=== PATIENT | male | born 1950 | race Caucasian/White ===

== ENCOUNTER 2018-10-02 07:30 | Inpatient (IN) | payer BC ==
[~2018-10-02] VITALS: Ht 165.1 cm; Wt 148.1 kg
[~2018-10-02 07:30] MED LIST: ACET-141 PO; ADV50050 INHALATION; ASPI81TA52 PO; ATOR40TA68 PO; CIPR500S2 PO; FURO20TA3 PO; HYDR-3980 PO; METO25TA4 PO; NYST15CR36 TOP; RANO500T2 PO
[2018-10-06 18:15] VITALS: Ht 165.1 cm; Wt 148.1 kg
[2018-10-16] VITALS (20 sets, daily range): BP systolic 103–175; BP diastolic 63–98; PULSE 70–84; RESP 14–20
[2018-10-16] MEDS ORDERED: CEFAZOLIN 2 GM/50 ML (PMX) 50 ML (FOR WT < 120 KG) IVPB ONE (06:00)
[2018-10-16] MEDS ORDERED: DEXAMETHASONE 4 MG/ML 1 ML INJ IV ONE (06:00)
[2018-10-16] MEDS ORDERED: ACETAMINOPHEN 1000MG/100ML IV 100 ML IVPB SCH (07:00)
[2018-10-16] MEDS ORDERED: POLYMYXIN/BACITRACIN 1L IRRIG ONE (07:02)
[2018-10-16] MEDS ORDERED: POLYMYXIN B 500000 UNIT INJ ONE (07:07)
[2018-10-16] MEDS: LACTATED RINGER'S 1,000 ML IV SCH ×5 (07:22→23:34)
[2018-10-16] MEDS ORDERED: MIDAZOLAM 1 MG/ML 2 ML INJ ONE (08:26)
[2018-10-16] MEDS ORDERED: ONDANSETRON 4 MG INJ ONE (08:26)
[2018-10-16] MEDS ORDERED: LIDOCAINE 2% (SDV) 5 ML INJ ONE (08:26)
[2018-10-16] MEDS ORDERED: CEFAZOLIN 1 GM INJ ONE ×2 (08:26)
[2018-10-16] MEDS ORDERED: PHENYLephrine 10 MG INJ ONE (08:26)
[2018-10-16] MEDS ORDERED: DEXAMETHASONE 4 MG/ML 5 ML INJ ONE (08:26)
[2018-10-16] MEDS ORDERED: FENTAnyl 50 MCG/ML VIAL ONE (08:26)
[2018-10-16] MEDS ORDERED: PROPOFOL 20 ML ONE (08:26)
[2018-10-16] MEDS ORDERED: morphine SULFATE/PF (10 MG/10 ML) INJ ONE (08:26)
[2018-10-16] MEDS ORDERED: BACITRACIN 50000 UNITS INJ ONE (08:56)
[2018-10-16] MEDS: TRANEXAMIC ACID 1GM/100ML(PMX) 100 ML AT INCISION X1 IVPB ONE ×2 (09:30)
[2018-10-16] MEDS ORDERED: LABETALOL HCL 20MG INJ IV PRN (10:30)
[2018-10-16] MEDS ORDERED: hydrALAzine 20 MG INJ IV PRN (10:30)
[2018-10-16] MEDS ORDERED: NALOXONE (0.4 MG/ML) INJ IV PRN ×2 (10:30→11:30)
[2018-10-16] MEDS ORDERED: DIPHENHYDRAMINE 50 MG INJ IV PRN (10:30)
[2018-10-16] MEDS ORDERED: FENTAnyl 50 MCG/ML VIAL IV PRN ×2 (10:30)
[2018-10-16] MEDS ORDERED: ALBUTEROL 0.083% (NEB) 2.5 MG/3 ML AMP HHN PRN (10:30)
[2018-10-16] MEDS ORDERED: MEPERIDINE 25 MG INJ IV PRN (10:30)
[2018-10-16] MEDS ORDERED: HYDROmorphONE 0.5 MG/0.5 ML SYG IV PRN ×2 (10:30)
[2018-10-16] MEDS ORDERED: ONDANSETRON 4 MG INJ IV PRN ×2 (10:30)
[2018-10-16] MEDS: TRANEXAMIC ACID 1GM/100ML(PMX) 100 ML AT CLOSURE X1 IVPB ONE ×2 (11:00)
[2018-10-16] MEDS ORDERED: ROPIVACAINE 0.5 % 30 ML VIAL ONE (11:00)
[2018-10-16] MEDS ORDERED: MAGNESIUM HYDROXIDE 30ML CUP PO PRN (11:30)
[2018-10-16] MEDS ORDERED: NACL 0.9% 3 ML SYG IV SCH (11:30)
[2018-10-16] MEDS ORDERED: oxyCODONE 5 MG TAB PO PRN (11:30)
[2018-10-16] MEDS: GABAPENTIN 100 MG CAP PO SCH ×2 (13:22→20:09)
[2018-10-16] MEDS: CEFAZOLIN 2 GM/50 ML (PMX) 50 ML IVPB SCH ×2 (15:38→23:35)
[2018-10-16] MEDS ORDERED: NITROGLYCERIN (SL) 0.4 MG TAB SL PRN (17:30)
[2018-10-16] MEDS: RANOLAZINE (SR) 500 MG TAB PO SCH (20:09)
[2018-10-16] MEDS: ATORVASTATIN 40 MG TAB PO SCH (20:09)
[2018-10-16] MEDS: METOPROLOL 25 MG TAB PO SCH (20:10)
[2018-10-16] MEDS: oxyCODONE 5 MG TAB PO PRN (22:25)
[2018-10-17] VITALS: BP 120/64; PULSE 90; RESP 18
[2018-10-17] MEDS: LACTATED RINGER'S 1,000 ML IV SCH ×4 (05:17→23:02)
[2018-10-17] MEDS: oxyCODONE 5 MG TAB PO PRN ×4 (06:45→20:15)
[2018-10-17 08:05] VITALS: BP 116/60; PULSE 75; RESP 19
[2018-10-17] MEDS: GABAPENTIN 100 MG CAP PO SCH ×3 (08:46→20:11)
[2018-10-17] MEDS: RANOLAZINE (SR) 500 MG TAB PO SCH ×2 (08:46→20:12)
[2018-10-17] MEDS: DOCUSATE SODIUM 100 MG CAP PO SCH ×2 (08:46→20:10)
[2018-10-17] MEDS: METOPROLOL 25 MG TAB PO SCH ×2 (08:47→20:14)
[2018-10-17] MEDS: FUROSEMIDE 20 MG TAB PO SCH (08:47)
[2018-10-17] MEDS ORDERED: APIXABAN 5 MG TABLET PO SCH (09:00)
[2018-10-17] MEDS ORDERED: FUROSEMIDE 20 MG TAB PO SCH (09:00)
[2018-10-17] MEDS ORDERED: FLUTICASONE/VILANTEROL 200-25 INH DEVICE INH SCH (09:00)
[2018-10-17] MEDS: CEFAZOLIN 2 GM/50 ML (PMX) 50 ML IVPB SCH (09:38)
[2018-10-17] MEDS: KETOROLAC 15 MG INJ IV PRN ×2 (09:44→19:28)
[2018-10-17] MEDS ORDERED: ONDANSETRON 4 MG INJ IV PRN (11:30)
[2018-10-17 12:29] VITALS: BP 156/72; PULSE 73; RESP 18
[2018-10-17 15:38] VITALS: BP 117/64; PULSE 68; RESP 18
[2018-10-17 18:30] VITALS: BP 157/72; PULSE 92; RESP 18
[2018-10-17 19:32] VITALS: BP 140/70; PULSE 92; RESP 18
[2018-10-17] MEDS: ATORVASTATIN 40 MG TAB PO SCH (20:10)
[2018-10-17] MEDS ORDERED: morphine 2 MG INJ IV PRN (23:00)
[2018-10-17] MEDS ORDERED: ACETAMINOPHEN 500 MG TAB PO PRN (23:30)
[2018-10-18 00:19] VITALS: BP 131/59; PULSE 84; RESP 16
[2018-10-18] MEDS: LACTATED RINGER'S 1,000 ML IV SCH ×2 (00:34→06:00)
[2018-10-18] MEDS ORDERED: morphine 2 MG INJ IV ONE (01:00)
[2018-10-18] MEDS ORDERED: MAGNESIUM SULFATE 2 GM/50 ML 50 ML IVPB ONE (02:00)
[2018-10-18] MEDS: PANTOPRAZOLE (EC) 40 MG TAB PO SCH (06:13)
[2018-10-18 07:51] VITALS: BP 118/71; PULSE 101; RESP 20
[2018-10-18] MEDS ORDERED: ASPIRIN (EC) 81 MG TAB PO SCH (09:00)
[2018-10-18] MEDS: NYSTATIN/TRIAMCINOLONE 15 GM CR TOP SCH ×2 (09:00→21:00)
[2018-10-18] MEDS: morphine 4 MG/ML VIAL IV PRN ×4 (09:24→22:28)
[2018-10-18] MEDS: RANOLAZINE (SR) 500 MG TAB PO SCH ×2 (09:26→20:37)
[2018-10-18] MEDS: GABAPENTIN 100 MG CAP PO SCH ×3 (09:26→20:38)
[2018-10-18] MEDS: FUROSEMIDE 20 MG TAB PO SCH (09:28)
[2018-10-18] MEDS: DOCUSATE SODIUM 100 MG CAP PO SCH ×2 (09:29→21:00)
[2018-10-18] MEDS: METOPROLOL 25 MG TAB PO SCH ×2 (09:29→20:47)
[2018-10-18] MEDS ORDERED: FUROSEMIDE 20 MG INJ IV ONE (11:00)
[2018-10-18] MEDS: POLYETHYLENE GLYCOL 17 GM PACKET GTB SCH ×2 (11:00→21:00)
[2018-10-18 11:08] VITALS: BP 125/60; PULSE 94; RESP 20
[2018-10-18 15:19] VITALS: BP 133/64; PULSE 100; RESP 20
[2018-10-18 20:00] VITALS: BP 136/64; PULSE 108; RESP 20
[2018-10-18] MEDS: ATORVASTATIN 40 MG TAB PO SCH (20:36)
[2018-10-18] MEDS ORDERED: APIXABAN 5 MG TABLET PO SCH (21:00)
[2018-10-18 23:53] VITALS: BP 104/58; PULSE 86; RESP 20
[2018-10-19] MEDS: morphine 4 MG/ML VIAL IV PRN ×5 (03:00→22:52)
[2018-10-19] MEDS: PANTOPRAZOLE (EC) 40 MG TAB PO SCH (07:06)
[2018-10-19 07:34] VITALS: BP 127/67; PULSE 86; RESP 20
[2018-10-19] MEDS: METOPROLOL 25 MG TAB PO SCH ×2 (08:48→20:19)
[2018-10-19] MEDS: GABAPENTIN 100 MG CAP PO SCH ×3 (08:48→20:19)
[2018-10-19] MEDS: RANOLAZINE (SR) 500 MG TAB PO SCH ×2 (08:48→20:18)
[2018-10-19] MEDS: POLYETHYLENE GLYCOL 17 GM PACKET GTB SCH ×2 (09:00→21:00)
[2018-10-19] MEDS: NYSTATIN/TRIAMCINOLONE 15 GM CR TOP SCH ×2 (09:00→20:18)
[2018-10-19] MEDS: DOCUSATE SODIUM 100 MG CAP PO SCH ×2 (09:00→21:00)
[2018-10-19 11:03] VITALS: BP 118/65; PULSE 99; RESP 20
[2018-10-19] MEDS: PHENAZOPYRIDINE 100 MG TAB PO SCH ×2 (13:44→20:25)
[2018-10-19] MEDS: CIPROFLOXACIN 200 MG/D5W IVPB 100 ML IVPB SCH ×2 (13:44→20:18)
[2018-10-19] MEDS: ATORVASTATIN 40 MG TAB PO SCH (20:18)
[2018-10-19] MEDS: ASPIRIN 81 MG TAB PO SCH (20:18)
[2018-10-20 05:45] VITALS: BP 123/77; PULSE 95; RESP 20
[2018-10-20] MEDS: PANTOPRAZOLE (EC) 40 MG TAB PO SCH (06:34)
[2018-10-20] MEDS: morphine 4 MG/ML VIAL IV PRN ×4 (06:48→22:06)
[2018-10-20 07:33] VITALS: BP 119/69; PULSE 88; RESP 20
[2018-10-20] MEDS: POLYETHYLENE GLYCOL 17 GM PACKET GTB SCH ×2 (09:17→21:00)
[2018-10-20] MEDS: GABAPENTIN 100 MG CAP PO SCH ×3 (09:17→20:40)
[2018-10-20] MEDS: RANOLAZINE (SR) 500 MG TAB PO SCH ×2 (09:17→20:39)
[2018-10-20] MEDS: FUROSEMIDE 20 MG TAB PO SCH (09:18)
[2018-10-20] MEDS: ASPIRIN 81 MG TAB PO SCH ×2 (09:18→20:40)
[2018-10-20] MEDS: PHENAZOPYRIDINE 100 MG TAB PO SCH ×3 (09:18→20:39)
[2018-10-20] MEDS: NYSTATIN/TRIAMCINOLONE 15 GM CR TOP SCH ×2 (09:18→21:00)
[2018-10-20] MEDS: METOPROLOL 25 MG TAB PO SCH ×2 (09:23→20:40)
[2018-10-20 09:38] VITALS: BP 115/57; PULSE 91; RESP 19
[2018-10-20] MEDS: CIPROFLOXACIN 200 MG/D5W IVPB 100 ML IVPB SCH ×2 (10:07→20:39)
[2018-10-20 19:50] VITALS: BP 121/65; PULSE 99; RESP 18
[2018-10-20] MEDS: ATORVASTATIN 40 MG TAB PO SCH (20:39)
[2018-10-20 22:15] VITALS: BP 120/62; PULSE 94; RESP 18
[2018-10-21] MEDS: PANTOPRAZOLE (EC) 40 MG TAB PO SCH (05:46)
[2018-10-21] MEDS: ALBUTEROL 0.083% (NEB) 2.5 MG/3 ML AMP HHN PRN ×2 (06:01→14:41)
[2018-10-21] MEDS: morphine 4 MG/ML VIAL IV PRN ×3 (06:54→15:29)
[2018-10-21 07:16] VITALS: BP 130/59; PULSE 107; RESP 19
[2018-10-21] MEDS ORDERED: NA PHOSPHATE/BIPHOS 133 ML ENEMA PR ONE (08:30)
[2018-10-21] MEDS: CIPROFLOXACIN 200 MG/D5W IVPB 100 ML IVPB SCH (08:31)
[2018-10-21] MEDS: POLYETHYLENE GLYCOL 17 GM PACKET GTB SCH (08:32)
[2018-10-21] MEDS: GABAPENTIN 100 MG CAP PO SCH ×2 (08:33→12:05)
[2018-10-21] MEDS: ASPIRIN 81 MG TAB PO SCH (08:33)
[2018-10-21] MEDS: PHENAZOPYRIDINE 100 MG TAB PO SCH ×2 (08:33→12:05)
[2018-10-21] MEDS: METOPROLOL 25 MG TAB PO SCH (08:34)
[2018-10-21] MEDS: FUROSEMIDE 20 MG TAB PO SCH (08:34)
[2018-10-21] MEDS: RANOLAZINE (SR) 500 MG TAB PO SCH (08:34)
[2018-10-21] MEDS: NYSTATIN/TRIAMCINOLONE 15 GM CR TOP SCH (08:34)
[2018-10-21] MEDS ORDERED: CIPROFLOXACIN 500 MG TAB PO SCH (18:00)
== END 2018-10-21 17:10 | disposition home health service (06) | DRG 470 ==
LOC: REC 10-16 06:36 → MS1 10-16 12:51 → TEL 10-17 23:23 → MS1 10-20 09:27
PROVIDERS: ADMIT Orthopaedic Surgery; ATTEND Orthopaedic Surgery
PROC: 0SRC06A Replacement of Right Knee Joint with Oxidized Zirconium on Polyethylene Synthetic Substitute, Uncemented, Open Approach (ICD-10-PCS; principal; 2018-10-16 08:30)
DX: M17.11 Unilateral primary osteoarthritis, right knee (principal); Z68.43 Body mass index [BMI] 50.0-59.9, adult; N39.0 Urinary tract infection, site not specified; E66.01 Morbid (severe) obesity due to excess calories; I48.2 Chronic atrial fibrillation; I10 Essential (primary) hypertension; I25.119 Atherosclerotic heart disease of native coronary artery with unspecified angina pectoris; Z95.1 Presence of aortocoronary bypass graft; J45.909 Unspecified asthma, uncomplicated
CPT/HCPCS: 73560; 80048; 81001; 83735; 84443; 85025; 86850; 86900; 86901; 87081; 87086; 88304; 88311; 93005; 93970; 94640; 94664; 97110; 97116; 97162; 97164; 97167; 97530; 97535; C1776; J0131; J0171; J0690; J0735; J0744; J1100; J1885; J1940; J2250; J2270; J2274; J2370; J2405; J2795; J3010; J3475; J7120